=== PATIENT | female | born 1990 | race Caucasian/White ===

== ENCOUNTER 2021-08-11 13:23 | Outpatient (REF) | payer OTHER, SELFPAY | END 2021-08-11 13:24 | disposition home or self-care (01) | LOC: HO.LAB 13:23 | PROVIDERS: PCP Internal Medicine; Visit Provider Internal Medicine | DX: Z20.822 Contact with and (suspected) exposure to COVID-19 (principal) | CPT/HCPCS: C9803; U0003; U0005 ==

== ENCOUNTER 2021-08-29 10:45 | Outpatient (REF) | payer OTHER, SELFPAY | END 2021-08-29 10:46 | disposition home or self-care (01) | LOC: HO.LAB 10:45 | PROVIDERS: PCP Internal Medicine; Visit Provider Internal Medicine | DX: Z20.822 Contact with and (suspected) exposure to COVID-19 (principal) | CPT/HCPCS: C9803; U0003; U0005 ==

== ENCOUNTER 2025-01-04 13:26 | Emergency (ER) | payer OTHER, SELFPAY ==
--- NOTE | ~2025-01-04 | CT_ITS ---
CLINICAL HISTORY: Gastric sleeve 2 m ago, LLQ pain, R SBO, divertic CT abdomen and pelvis with contrast Comparison: None Findings: The lung bases are clear. There is cholelithiasis. Gallbladder appears otherwise normal. The liver, pancreas, spleen, adrenal glands, and kidneys are unremarkable. Patient is status post sleeve gastrectomy. The gastrointestinal tract is otherwise unremarkable. There is no bowel obstruction. There is trace free fluid in the cul-de-sac. There is no free air. The aorta and IVC are normal. There are no enlarged lymph nodes. There is an incidental dominant follicle in the right ovary measuring about 2.8 cm. Uterus and adnexa are otherwise unremarkable. There is no fracture or suspicious lytic or sclerotic lesion. IMPRESSION: 1. No acute abnormality in the abdomen or pelvis. 2. Cholelithiasis. 3. Postoperative changes of sleeve gastrectomy. This document has been electronically signed by: Garth Villanueva MD on 01/05/2025 03:12:41
[2025-01-04 13:29] VITALS: BP 110/76; PULSE 74; RESP 16; TEMP 36.5; O2SAT 100; BMI 25.3
--- NOTE | 2025-01-04 13:30 | ED_ITS ---
HPI - Abdominal Pain General Chief Complaint: Abdominal Pain Stated Complaint: left side abdominal pain Time Seen by Provider: 01/04/25 22:45 Source: patient Mode of arrival: ambulatory Limitations: no limitations History of Present Illness ED Provider: Dr. Da Ardon HPI narrative: 34-year-old female with no significant past medical history who had a gastric sleeve surgery 2 months prior in [place] who presents emergency department for evaluation of left lower quadrant pain x4 days. The pain has been intermittent. The pain is worse with movement and with lifting heavy objects. She states that her last bowel movement was yesterday. The pain is 9/10 at its worst. This is the patient's 1st episode of this type of pain. Since the gastric bypass surgery she was lost 20 lb. She denied fever, chills, rhinorrhea, sore throat, cough, chest pain, dyspnea on exertion, nausea vomiting or diarrhea. Patient was not had any frequency or dysuria. Patient has noted a strong odor to her urine. Related Data Allergies Allergy/AdvReac Type Severity Reaction Status Date / Time No Known Allergies Allergy Verified 01/04/25 13:36 Review of Systems Review of Systems Yes all other systems are reviewed and are negative [facility] Past Medical History [facility] Narrative: Social history: The patient denies tobacco, alcohol and drug use. Social History Social History Advance Directives: No Advance Directives Information Provided: No Do you have a plan to hurt others: No Plan Physical Exam ED Vital Signs: Vital Signs - 24 hr 01/04/25 13:29 01/04/25 23:25 Temperature 97.7 F 97.7 F Pulse Rate 74 72 Respiratory Rate 16 16 Blood Pressure 110/76 95/69 Pulse Oximetry 100 100 Oxygen Delivery Method Room Air Room Air BMI result Body Mass Index 25.3 Vital signs were normal Exam: General: Awake, alert in no distress Head: Normocephalic, atraumatic EENT: PERRL, Lids normal, sclera normal, conjunctiva normal, nose normal , ears normal, throat without erythema or exudates Neck: Supple, no adenopathy Lung: breath sounds symmetric, no wheezing, rales or rhonchi Chest: symmetric movement, nontender Heart: regular rate and rhythm, normal S1, S2 no murmurs or rubs Abdomen: soft, moderate left lower quadrant tenderness, no rebound, no voluntary or involuntary guarding Back: no vertebral tenderness, no CVAT Extremities: no deformities, moves all extremities symmetrically Neuro: Awake, alert, oriented, normal speech, cranial nerves intact, moves all extremities symmetrically Psych: Pleasant, cooperative Course Course Course Narrative: This is a Rapid Medical Exam performed in triage by Edyta Alberto PA-C. Full HPI, ROS and PE to be performed by primary ED provider. 34 yo F presenting to the ED c/o L sided abd pain x4 days w/radiation to back. Patient is s/p gastric sleeve in [place] 2 months ago. Pain worse w/movement & is intermittent. +odorous urine. denies N/V, SOB PE: No rash, +L CVAT, +LLQ abd ttp, no rebound or guarding. Plan: Labs, UA, CT Medical Decision Making Medical Decision Making MDM Narrative: 34-year-old female with no significant past medical history who had a gastric sleeve surgery 2 months prior in [place] who presents emergency department for evaluation of intermittent, left lower quadrant pain x4 days, course with movement and lifting heavy objects, review of systems was negative. Patient was had an intentional 20 lb weight loss since the gastric sleeve surgery. She did notice a strong odor to her urine but had no frequency, urgency or dysuria. Differential diagnosis: ?Includes but is not limited to diverticulitis, pancreatitis, hernia, partial small-bowel obstructions, anemia, electrolyte abnormalities Course: 02:12 My independent interpretation patient's laboratory evaluation is as follows: CBC was normal. CMP was normal except for an elevated bilirubin of 1.2. Quantitative beta-hCG was below detectable limits. Urinalysis was positive for leukocyte esterase. Microscopic revealed 21-50 WBCs, 1+ bacteria and 11-20 squamous cells-this is a non clean catch urine and the patient has no urinary tract symptoms, therefore doubt that she was urinary tract infection. Patient was treated with morphine 4 mg IV, Zofran 4 mg IV and normal saline x1 L with improvement of her pain. The patient's CT scan of the abdomen pelvis with both oral and IV contrast are pending. At the end of my shift, patient's care was turned over to my colleague, Dr. Ch. Patient's CT scan is negative essentially except for gallstone which were uncomplicated patient's pain is likely from small muscular hernia at the site of surgery laparoscopic surgery done when patient lifts heavy stuff at work no hernia palpable clinically small nodules palpable in the abdominal muscle likely had site of laparoscopic surgery Admission/Observation Consideration of admission/observation: Escalation of care including admission/observation considered (Yes) Lab Data MDM Lab Attestation statement: I reviewed the patient's lab results. 01/04/25 13:51 01/04/25 13:51 Labs: Lab Results 01/04/25 Range/Units 13:51 WBC 6.7 (4.8-10.8) X10*3/uL RBC 4.50 (4.20-5.50) X10*6/uL Hgb 12.0 (12.0-16.0) g/dl Hct 36.0 L (37.0-47.0) % MCV 80.0 (80.0-98.0) fL MCH 26.7 L (27.0-33.0) pg MCHC 33.3 (31.0-35.0) g/dl RDW 12.1 (11.0-16.0) % Plt Count 370 (160-400) X10*3/uL MPV 9.7 (9.4-12.3) fL Immature Gran % (Auto) 0.3 (0.0-0.4) % Neut % (Auto) 65.4 (45-73) % Lymph % (Auto) 26.1 (20-40) % [place] % (Auto) 5.3 (2-11) % Eos % (Auto) 1.8 (0-4) % Baso % (Auto) 1.1 (0-2) % Lymph # (Auto) 1.7 (1.2-4.9) X10*3/uL [place] # (Auto) 0.4 (0.1-1.2) X10*3/uL Eos # (Auto) 0.1 (0.0-0.4) X10*3/uL Baso # (Auto) 0.1 (0.0-0.2) X10*3/uL Abs Immat Gran (auto) 0.02 (0.00-0.03) X10*3/uL Absolute Neuts (auto) 4.4 (2.0-8.3) x10*3/uL Absolute Nucleated RBC 0.000 (0.0-0.012) X10*3/uL Nucleated RBC % (auto) 0.0 (0.0-0.2) /100WBC Sodium 140 (135-145) mmol/L Potassium 3.4 (3.3-5.1) mmol/L Chloride 109 H (96-108) mmol/L Carbon Dioxide 22 (22-29) mmol/L Anion Gap 12 (12-20) BUN 13 (9-16) mg/dL Creatinine 0.67 (0.5-1.4) mg/dL Estim Creat Clear Calc 102.9 Estimated GFR > 60 Random Glucose 98 (60-115) mg/dL Calcium 9.2 (8.4-10.2) mg/dL Magnesium 2.0 (1.6-2.6) mg/dL Total Bilirubin 1.2 H (0.0-1.0) mg/dL Direct Bilirubin 0.3 (0.0-0.5) mg/dL AST 18 (5-31) U/L ALT 8 (0-31) U/L Alkaline Phosphatase 56 (39-117) U/L Total Protein 7.5 (6.5-8.0) g/dL Albumin 4.4 (3.5-5.0) g/dL Lipase 23 (8-78) U/L Beta HCG, Quant < 2 mIU/mL Urine Color Dark Yellow Urine Appearance Cloudy Urine pH 5.5 (5.0-9.0) Ur Specific [place] >= 1.030 H (1.005-1.025) Urine Protein Trace (Neg-Trace) mg/dL Urine Glucose (UA) Negative (Negative) mg/dL Urine Ketones Trace (Negative) mg/dL Urine Blood Negative (Negative) Urine Nitrite Negative (Negative) Ur Leukocyte Esterase Small (1+) H (Negative) Urine RBC 0-2 (0-2) /HPF Urine WBC 21-50 H (0-5) /HPF Ur Squamous Epith Cells 11-20 (0-2) /HPF Urine Bacteria 1+ (None Seen) Hyaline Casts 0-2 (0-2) /LPF Independent Historian Clinical information obtained from an independent historian. History obtained from or confirmed by: Spouse Medications Administered Discontinued Medications Generic Name Dose Route Start Last Admin Trade Name Freq PRN Reason Stop Dose Admin Diatrizoate Meglum/Diatrizoate Sod 30 ml 01/05/25 00:00 01/05/25 00:01 Diatrizoate Meglumine, Sodium 30 Ml Solution PO 01/05/25 00:01 30 ml ONCE ONE Administration Sodium Chloride 1,000 mls @ 250 mls/hr 01/04/25 23:27 01/04/25 23:52 Ns IV 01/05/25 03:26 250 mls/hr .Q4H STA Administration Morphine Sulfate 4 mg 01/04/25 23:27 01/04/25 23:48 Morphine Sulfate 4 Mg/Ml Cartridge IVPUSH 01/04/25 23:28 4 mg ONCE STA Administration Protocol Ondansetron HCl 4 mg 01/04/25 23:27 01/04/25 23:48 Ondansetron Hcl 4 Mg/2 Ml Vial IVPUSH 01/04/25 23:28 4 mg ONCE ONE Administration Discharge Plan Discharge Clinical Impression: Abdominal pain Qualifiers: Abdominal location: left lower quadrant Qualified Code(s): R10.32 - Left lower quadrant pain Patient Disposition: Home, Self-Care Instructions: Abdominal Pain (ED) Additional Instructions: Avoid lifting heavy stuff till healed completely Tylenol for pain as needed Follow up with your surgeon You do have gallstones which are uncomplicated at this time Stand Alone Forms: Work/School Release Print Language: Czech
[2025-01-04 14:05] LABS: MANUAL DIFF FLAG NO
[2025-01-04 14:07] LABS: Basophils Absolute Auto 0.1 X10*3/uL (0.0-0.2); Basophils Percent Auto 1.1 % (0-2); Eosinophils Absolute Auto 0.1 X10*3/uL (0.0-0.4); Eosinophils Percent Auto 1.8 % (0-4); Imm Gran Abs Auto 0.02 X10*3/uL (0.00-0.03); Imm Gran Pct Auto 0.3 % (0.0-0.4); Lymphocytes Absolute Auto 1.7 X10*3/uL (1.2-4.9); Lymphocytes Percent Auto 26.1 % (20-40); Mean Corpuscular HGB Conc 33.3 g/dl (31.0-35.0); Mean Corpuscular Hemoglobin 26.7 pg (27.0-33.0); Mean Platelet Volume 9.7 fL (9.4-12.3); Monocytes Absolute Auto 0.4 X10*3/uL (0.1-1.2); Monocytes Percent Auto 5.3 % (2-11); Neutrophils Absolute Auto 4.4 x10*3/uL (2.0-8.3); Neutrophils Percent Auto 65.4 % (45-73); Platelet Count 370 X10*3/uL (160-400); Red Cell Distribution Width 12.1 % (11.0-16.0); White Blood Count 6.7 X10*3/uL (4.8-10.8)
[2025-01-04 14:11] LABS: Appearance Urine Cloudy; Color Urine Dark Yellow; Glucose Urine UA Negative (Negative); Leukocyte Esterase Urine Small (1+) (Negative); Nitrite Urine Negative (Negative); PH 5.5 (5.0-9.0); Specific Gravity - Urine >= 1.030 (1.005-1.025); UMIC TRIGGER UACC YES; Urine Blood Negative (Negative); Urine Ketones Trace mg/dL (Negative); Urine Protein Trace mg/dL (Neg-Trace)
[2025-01-04 14:21] LABS: Bacteria Urine 1+ (None Seen); Hyaline Casts Urine 0-2 /LPF (0-2); RBC Urine 0-2 /HPF (0-2); UACC Culture Trigger YES; WBC Urine 21-50 /HPF (0-5)
[2025-01-04 14:32] LABS: Alanine Aminotransferase 8 U/L (0-31); Albumin Level 4.4 g/dL (3.5-5.0); Anion Gap 12 (12-20); Aspartate Amino Transferase 18 U/L (5-31); Bilirubin Direct 0.3 mg/dL (0.0-0.5); Bilirubin Total 1.2 mg/dL (0.0-1.0); Blood Urea Nitrogen 13 mg/dL (9-16); Calcium 9.2 mg/dL (8.4-10.2); Carbon Dioxide 22 mmol/L (22-29); Chloride 109 mmol/L (96-108); Creatinine Clr Calc Pharmacy 102.9; Estimated Glomerular Filt Rate > 60; Glucose Random 98 mg/dL (60-115); Lipase 23 U/L (8-78); Potassium 3.4 mmol/L (3.3-5.1); Sodium 140 mmol/L (135-145); Total Protein 7.5 g/dL (6.5-8.0)
[2025-01-04 14:37] LABS: HCG Quantitative < 2 mIU/mL
[2025-01-04 15:29] LABS: Alkaline Phosphatase 56 U/L (39-117)
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
--- OUTSIDE RECORDS SUMMARY | 2025-01-04 22:53 | XMS_ITS | Encounter Summary ---
[facility] [place] [address] Care Team Providers Care Inspector Assembly Name Role Phone Joanie Boo MD Primary Care Prov ider Reason for Visit * Reason Onset Date Comments Appointment 12/12/2024 Encounter Details Date Type Department Care Team (Late st Contact Info) Description 12/12/2024 Telephone Obstetrics and Gynecology [address] [phone] Divya Brown MD [address] [place], [place] Appointment Social History Tobacco Use Types Packs/Day Years [...] as of this encounter Progress Notes * Malu Hunt RN - 12/12/2024 1:28 PM EST Pt call routed to wrong pool at initial call @ 10am . RN did not receive call until 1305. * Malu Hunt RN - 12/12/2024 1:10 PM EST [facility] spanish interpreter/translator services #[id number].pt states she has heavy periods every month and has been bleeding for 4 days where she is wearing a super tampon and maxi pad soaking through them every hour. No Clotsor c/o SOB, dizziness or chest pain. Pt advised to go to ED for excessive heavy bleeding. Pt deniesheavy bleeding to go to ED. Reviewed heavy bleeding precautions. If vaginal bleeding soaks an overnight maxi pad every hour formore than 5 hrs with blood clots, lightheadedness, chest pain, or palpitations pt should go to ED for further evaluation. Pt's job requires heavy lifting and she could not go to work due to heavy bleeding. Pt asking for a work note. Pt advised the provider will not give her a work note unless necess mitzi. Pt scheduled appt today at 4pm with CNM. * Alee Diaz - 12/12/2024 12:56 PM EST Patient calling in again please call * Yadi Anderson - 12/12/2024 10:01 AM EST Pt calling, was suppose to have gotten an call for an consultation of discuss menorrhagia surgicalmanagement options . Pls advise documented in this encounter Plan of Treatment Upcoming Encounters Date Type Department Care Team (Late st Contact Info) Description 05/19/2025 12:00 PM EDT Office Visit Adult Medicine [facility] [address] [place] [address] Monica Burton PA [address] [place] [address] 06/09/2025 10:30 AM EDT Office Visit [facility] Hematology Oncology [address] [place] [phone] Gina May PA [address] [place] [address] documented as of this encounter Visit Diagnoses Not on filedocumented in this encounter Care Teams Inspector Assembly Relationship Specialty Start Date End Date Joanie Boo MD [address] [place] [id number] PCP - General Internal Medicine 06/14/22 documented as of this encounter
--- OUTSIDE RECORDS SUMMARY | 2025-01-04 22:53 | XMS_ITS | Clinical Summary ---
Author Organization [facility] Address [address] [place] [address] Care Team Providers Care Primer Powder Blender Wet Name Role Phone Cristina Díaz MD Primary Care Provider [phone] Allergies Active Allergy Reactions Criticality Noted Date Comments Dextromethorphan Shortness Of Breath High 03/03/2021 tachycardia Dextromethorphan-Guaifenes in 03/20/2018 Tachycardia,sob Guaifenesin Shortness Of Breath High 03/03/2021 Tachycardia Medications Medication Sig Dispensed Refills Start Date End Date Status PARoxetine (PAXIL) 30 MG tablet Take 20 mg by mouth every morning. 0 Active LORazepam (ATIVAN) 1 MG tablet Take 1 tablet (1 mg total) by mouth daily. 0 Active zolpidem (AMBIEN) 10 MG tablet Take 1 tablet (10 mg total) by mouth every night at bedtime as needed for sleep. 0 Active ALPRAZolam (XANAX) 1 MG tablet Take 1 tablet (1 mg total) by mouth every night at bedtime as needed for sleep. 0 Active Active Problems Problem Noted Date Diagnosed Date Iron deficiency anemia due to chronic blood loss 03/05/2023 Menorrhagia with regular cycle 05/07/2021 Generalized anxiety disorder 02/11/2019 Iron deficiency anemia 03/20/2018 Migraine 07/11/2011 Overview: Physical therapy Depression Family History Medical History Relation Name Comments Diabetes Maternal Grandmother Relation Name Status Comments Maternal Grandmother Social History Tobacco Use Types Packs/Day Years Used Date Smoking Tobacco: Never Smokeless Tobacco: Never Alcohol Use Standard Drinks/Week Comments Never 0 (1 standard drink = 0.6 oz pur e alcohol) Sex and Gender Information Value Date Recorded Sex Assigned at Female 03/21/2023 1:56 PM EDT Gender Identity Not on file Sexual Orientation Not on file Job Start Date Occupation Industry Not on file Not on file Not on file Last Filed Vital Signs Vital Sign Reading Time Taken Comments Blood Pressure 97/63 06/24/2024 11:06 AM EDT Pulse 75 06/24/2024 11:06 AM EDT Temperature 36.5 ??C (97.7 ??F) 06/24/2024 11:06 AM E DT Respiratory Rate 16 06/24/2024 11:06 AM EDT Oxygen Saturation 100% 06/24/2024 11:06 AM EDT Inhaled Oxygen Concentration - - Weight 74.5 kg (164 lb 3.9 oz) 06/17/2024 1:19 P M EDT Height 157.5 cm (5' 2 ) 03/02/2023 8:51 AM EDT Body Mass Index 30.04 03/02/2023 8:51 AM EDT Plan of Treatment Health Maintenance Due Date Last Done Comments Hepatitis B Vaccines (1 of 3 - 3-dose series) 1990 Hepatitis C Screening 1990 Depression Screening 2002 BMI Counseling 2008 Preventative Health Evaluation 2008 Cervical Cancer Screening (Pap Smear) 2011 COVID-19 Vaccine (2 5 season) 2024 02/25/2021 Influenza Vaccine (#1) 2024 9, 09/01/2015 DTap / Tdap / Td (4 - Td or Tdap) 11/28/2029 11/28/2019, 04/23/2017, 11/03/2013 Pneumococcal Vaccine Aged Out No long er eligible based on patient's age to complete this topic RSV Ped < 20 months Aged Out No longe r eligible based on patient's age to complete this topic Care Teams Primer Powder Blender Wet Relationship Specialty Start Date End Date Cristina Díaz MD PCP - General Internal Medicine 03/04/21
--- OUTSIDE RECORDS SUMMARY | 2025-01-04 22:53 | XMS_ITS | Clinical Summary ---
Author Organization [facility] [place] Address [address] [place] [address] Care Team Providers Care Bath Design Sales Consultant Name Role Phone Joanie Boo MD Primary Care Prov ider Allergies Active Allergy Reactions Criticality Noted Date Comments Dextromethorphan Shortness of breath High 03/03/2021 tachycardia Dextromethorphan-Guaifenes in 03/20/2018 Tachycardia,sob Guaifenesin Shortness of breath High 03/03/2021 Tachycardia Medications ALPRAZolam (XANAX) 1 mg tablet Take 1 tablet (1 mg total) by mouth every night at bedtime as needed for sleep. 06/20/2023 Active LORazepam (ATIVAN) 1 mg tablet Take 1 tablet (1 mg total) by mouth daily. Active PARoxetine (PAXIL) 30 mg tablet Take 20 mg by mouth every morning. Active zolpidem (AMBIEN) 10 mg tablet Take 1 tablet (10 mg total) by mouth every night at bedtime as needed for sleep. - Oral 04/28/2019 Active norethindrone (AYGESTIN) 5 mg tablet Take 1 tablet (5 mg total) by mouth 1 (one) time each day. 30 tablet 3 12/12/2024 Active Active Problems Problem Noted Date Diagnosed Date Iron deficiency anemia due to chronic blood loss 03/05/2023 Menorrhagia with regular cycle 05/07/2021 Overview (08/12/2024): Last Assessment & Plan: We again discussed all options for management of her bleeding. She is definitely not interested in hormones. She was most interested in ablation. I explained that this would be mean she should not attempt to conceive again in the future given the danger of abnormal placentation in women with previous ablation. She was offered hysterectomy as well. She desired to consider her options, but was interested in trying TXA with menses. Rx given and she will follow up. Generalized anxiety disorder 02/11/2019 Iron deficiency anemia 03/20/2018 Depression 08/30/2015 Migraine 07/11/2011 Overview (08/12/2024): Physical therapy Encounters Date Type Department Care Team Description 12/12/2024 4:00 PM EST Office Visit Obstetrics and Gynecology - [address] [phone] Karena Cardoza CNM Menorrhagia with regular cycle (Primary Dx); Iron deficiency anemia due to chronic blood loss 12/12/2024 Telephone Adult Medicine [facility] - [address] [phone] Joanie Boo MD triage 12/12/2024 Telephone Obstetrics and Gynecology - [address] [phone] Divya Brown MD Appointment 10/09/2024 2:30 PM EST Office Visit Obstetrics and Gynecology - [address] [phone] Latisha Parrish CNM Vaginal discharge (Primary Dx); Screen for STD (sexually transmitted disease) 10/08/2024 Telephone Obstetrics and Gynecology - [address] [phone] Milka Castellon CNM Vaginal Discharge from Last 3 Months Surgical History Surgery Date Site/Laterality Comments BREAST SURGERY 2011 PROCEDURE:REDUCTION MAMMAPLASTY TUBAL LIGATION PROCEDURE:TUBAL LIGATION WISDOM TOOTH EXTRACTION PROCEDURE:WISDOM TOOTH EXTRACTION SECTION PROCEDURE: SECTION SECTION PROCEDURE: HISTORICAL DELIVERY; COMMENT: x3 BREAST REDUCTION 2011 PROCEDURE: [place] BREAST REDUCTION WISDOM TOOTH EXTRACTION Left PROCEDURE: HISTORICAL WISDOM TEETH EXTRACTION; COMMENT: upper/lower OTHER SURGICAL HISTORY PROCEDURE: [place] LIG/TRNSXJ FLP TUBE ABDL/VAG APPR UNI/BI Medical History Medical History Date Comments Iron deficiency anemia DX:Iron d eficiency anemia Migraine DX:Migraine Neck pain DX:Neck pain Major depressive disorder wi th current active episode DX:Major depressive disorder with current active episode Generalized anxiety disorder DX: Generalized anxiety disorder Panic disorder DX:Panic disorde r Vitamin D deficiency DX:Vitamin D deficiency Depression DX:Depression MRSA (methicillin resistant staph aureus) culture positive DX:MRSA (methicillin resista nt staph aureus) culture positive Vitamin D deficiency 06/19/2018 DX:Vitamin D deficiency Major depressive disorder wi th current active episode 02/11/2019 DX:Major depressive disorder with current active episode Generalized anxiety disorder 02/11/2019 DX: Generalized anxiety disorder Panic disorder 02/11/2019 DX:Panic disorde r MRSA (methicillin resistant staph aureus) culture positive 11/10/2013 DX:MRSA (methicillin resista nt staph aureus) culture positive; COMMENT: 11/07/2013 - Vulva Abcess culture results +MRSA # 1 negative 05/25/17 #2 negative 06/06/17 #3 negative 06/20/2017 ---infection cleared no further testing or precautions indicated Family History Medical History Relation Name Comments Diabetes Father Diabetes Maternal Grandmother Other: pulmonary embolism Mother No Known Problems Sister Breast cancer Neg Hx Cancer of Small Bowel Neg Hx Colon cancer Neg Hx Kidney cancer Neg Hx Ovarian cancer Neg Hx Pancreatic cancer Neg Hx Uterine cancer Neg Hx Relation Name Status Comments Father Maternal Grandmother Mother Sister Alive Social History Tobacco Use Types Packs/Day Years Used Date Smoking Tobacco: Never Smokeless Tobacco: Never Tobacco Cessation:Counseling Given: Not Answered Alcohol Use Standard Drinks/Week Comments No 0 (1 standard drink = 0.6 oz pur e alcohol) Comments No Sex and Gender Information Value Date Recorded Sex Assigned at Not on file Legal Sex Female 1:29 PM EST Gender Identity Female 05/05/2022 10:59 AM EDT Sexual Orientation Not on file Obstetrics History Para Term AB IAB SAB Ectopic Multiple Livin g Live Births 6 5 5 0 1 1 0 0 0 5 5 Date Outcome GA Total Labor Labor/2nd/3rd Weight Sex Type Anes PTL Stephenie A1 A5 Name Clin 2002 IAB 007 Term 40w 0d M CS-Un spec Living Delivery Location:[facility] [place] 008 Term 40w 0d M CS-Un spec Living Delivery Location:[facility] Comments:[place] 013 Term 37w 0d F CS-Un spec Living Delivery Location:[facility] 017 Term 39w 4d CS-Un spec Living 020 Term CS-Un spec Living Last Filed Vital Signs Vital Sign Reading Time Taken Comments Blood Pressure 102/72 12/12/2024 3:57 PM EST Pulse 102 12/12/2024 3:57 PM EST Temperature - - Respiratory Rate 18 10/09/2024 2:14 PM EST Oxygen Saturation - - Inhaled Oxygen Concentration - - Weight 64.8 kg (142 lb 12.8 oz) 12/12/2024 3:57 PM EST Height 157.5 cm (5' 2 ) 12/12/2024 3:57 PM EST Body Mass Index 26.12 12/12/2024 3:57 PM EST Plan of Treatment Upcoming Encounters Date Type Department Care Team (Late st Contact Info) Description 05/19/2025 12:00 PM EDT Office Visit Adult Medicine [facility] [address] [place] [address] Monica Burton PA [address] [place] [address] 06/09/2025 10:30 AM EDT Office Visit [facility] Hematology Oncology [address] [place] [address] Gina May PA [address] [place] [address] Health Maintenance Due Date Last Done Comments Hepatitis B Vaccines (1 of 3 - 19+ 3-dose series) 2009 Depression Screening 11/05/2020 Hepatitis C Screening 11/05/2020 Social Influencers of Health Screening 11/05/2020 HPV Vaccines (3 - 3-dose SCD M series) 05/03/2021 01/06/2021, 11/02/2020 Cervical Cancer Screening: P ap Smear 11/02/2023 11/02/2020 COVID-19 Vaccine (2 - 2023-2 5 season) 2024 02/25/2021 Influenza Vaccine (#1) 2024 7, 09/01/2015, 08/06/2013 DTaP,Tdap,and Td Vaccines (3 - Td or Tdap) 04/23/2027 04/23/2017, 11/03/2013 HIV Screening Completed 09/09/2024 HIB Vaccines Aged Out No longer eligi ble based on patient's age to complete this topic Hepatitis A Vaccines Aged Out No long er eligible based on patient's age to complete this topic IPV Vaccines Aged Out No longer eligi ble based on patient's age to complete this topic MMR Vaccines Aged Out No longer eligi ble based on patient's age to complete this topic Meningococcal ACWY Vaccine Aged Out N o longer eligible based on patient's age to complete this topic Pneumococcal Vaccine: Pediatrics (0 to 5 Years) and At-Risk Patients (6 to 64 Years) Aged Out No longer eligible b ased on patient's age to complete this topic RSV Immunization Patients Under 20 months Aged Out No longer eligible b ased on patient's age to complete this topic Varicella Vaccines Aged Out No longer eligible based on patient's age to complete this topic Procedures Procedure Name Priority Date/Time Associated Diagnosis Comments CBC WITH AUTO DIFFERENTIAL Routine 12/12/2024 4:41 PM EST Iron deficiency anemia, unspecified CBC AND DIFFERENTIAL Routine 12/12/2024 4:41 PM EST Iron deficiency anemia, unspecified FERRITIN Routine 12/12/2024 4:41 PM EST Iron deficiency anemia, unspecified IRON AND TIBC Routine 12/12/2024 4:41 PM EST Iron deficiency anemia, unspecified TRICHOMONAS VAGINALIS ANTIGEN Routine 10/09/2024 2:43 PM EST Vaginal discharge WET PREP, GENITAL Routine 10/09/2024 2:4 3 PM EST Vaginal discharge CHLAMYDIA TRACHOMATIS AND NEISSERIA GONORRHOEAE PCR Routine 10/09/2024 2:43 PM EST Vaginal discharge Screen for STD (sexually transmitted disease) PAP SMEAR Routine 11/02/2020 from Last 3 Months or Most Recently Relevant to Health Maintenance Results * (ABNORMAL) CBC auto differential (12/12/2024 4:41 PM EST) WBC 9.7 4.8 - 10.8 K/mcL LAB HEMETOLOGY METHOD 12/12/2024 6:51 PM [facility] RBC 4.60 3.80 - 4.80 M/mcL LAB HEMETOLOGY METHOD 12/12/2024 6:51 PM [facility] Hemoglobin 12.6 11.5 - 16.0 g/dL LAB HEMETOLOGY METHOD 12/12/2024 6:51 PM [facility] Hematocrit 38.2 35.0 - 47.0 % LAB HEMETOLOGY METHOD 12/12/2024 6:51 PM [facility] MCV 82.9 79.0 - 98.0 FL LAB HEMETOLOGY METHOD 12/12/2024 6:51 PM [facility] MCH 27.3 27.0 - 32.0 pcg LAB HEMETOLOGY METHOD 12/12/2024 6:51 PM [facility] MCHC 33.0 32.0 - 37.0 g/dL LAB HEMETOLOGY METHOD 12/12/2024 6:51 PM [facility] RDW 11.9 11.0 - 15.0 % LAB HEMETOLOGY METHOD 12/12/2024 6:51 PM [facility] Platelets 459(H) 130 - 400 K/mcL LAB HEMETOLOGY METHOD 12/12/2024 6:51 PM [facility] MPV 10.1 7.0 - 11.0 FL LAB HEMETOLOGY METHOD 12/12/2024 6:51 PM [facility] NRBC 0.0 <1.0 % LAB HEMETOLOGY METHOD 12/12/2024 6:51 PM [facility] NRBC Absolute 0.00 <0.10 K/mcL LAB HEMETOLOGY METHOD 12/12/2024 6:51 PM [facility] Neutrophils Relative 66.1 % LAB HEMETOLOGY METHOD 12/12/2024 6:51 PM [facility] Lymphocytes Relative 23.2 % LAB HEMETOLOGY METHOD 12/12/2024 6:51 PM [facility] Monocytes Relative 7.2 % LAB HEMETOLOGY METHOD 12/12/2024 6:51 PM [facility] Eosinophils Relative 2.5 % LAB HEMETOLOGY METHOD 12/12/2024 6:51 PM [facility] Basophils Relative 0.8 % LAB HEMETOLOGY METHOD 12/12/2024 6:51 PM [facility] Immature Granulocytes Relative 0.2 % LAB HEMETOLOGY METHOD 12/12/2024 6:51 PM [facility] Neutrophils Absolute 6.42 1.50 - 7.00 K/mcL LAB HEMETOLOGY METHOD 12/12/2024 6:51 PM [facility] Lymphocytes Absolute 2.25 1.00 - 5.00 K/mcL LAB HEMETOLOGY METHOD 12/12/2024 6:51 PM [facility] Monocytes Absolute 0.70 0.20 - 1.00 K/mcL LAB HEMETOLOGY METHOD 12/12/2024 6:51 PM [facility] Eosinophils Absolute 0.24 0.00 - 0.50 K/mcL LAB HEMETOLOGY METHOD 12/12/2024 6:51 PM [facility] Basophils Absolute 0.08 0.00 - 0.20 K/mcL LAB HEMETOLOGY METHOD 12/12/2024 6:[address] [facility] Immature Granulocytes Absolute 0.02 0.00 - 0.03 K/[facility] LAB HEMETOLOGY METHOD 12/12/2024 6:[address] [facility] Blood Venous blood specimen / Unknown Venipuncture / Unknown 12/12/2024 4:41 PM EST 12/12/2024 4:41 PM EST us Gina RENEE LAB BLOOD ORDERABLES Final Resul t [facility] [address] [place] [address], [place] [phone] * (ABNORMAL) Iron and TIBC (12/12/2024 4:41 PM EST) Iron 58 40 - 150 mcg/dL LAB CHEMISTRY METHOD 12/12/2024 7:17 PM [facility] TIBC 402 250 - 450 mcg/dL LAB CHEMISTRY METHOD 12/12/2024 7:17 PM [facility] Iron Saturation 14(L) 15 - 50 % LAB CHEMISTRY METHOD 12/12/2024 7:17 PM [facility] Blood Venous blood specimen / Unknown Venipuncture / Unknown 12/12/2024 4:41 PM EST 12/12/2024 4:41 PM EST us Gina RENEE LAB BLOOD ORDERABLES Final Resul t [facility] [address] [place] [address], [place] [phone] * Ferritin (12/12/2024 4:41 PM EST) Ferritin 16 8 - 252 ng/mL LAB CHEMISTRY METHOD 12/12/2024 7:[address] [facility] Blood Venous blood specimen / Unknown Venipuncture / Unknown 12/12/2024 4:41 PM EST 12/12/2024 4:41 PM EST Gina RENEE LAB BLOOD ORDERABLES Final Resul t [facility] [address] [place] [address], [place] [phone] * Trichomonas vaginalis antigen (10/09/2024 2:43 PM EST) Pathologist [facility] Trichomonas vaginalis Negative Negative 10/09/2024 9:[address] [facility] Swab Vaginal structure / Unknown Non-blood Collection / Unknown 10/09/2024 2:43 PM EST 10/09/2024 2:43 PM EST Latisha Parrish CNM LAB MICROBIOLOGY - GENE RAL ORDERABLES Final Result Performing Organization Address [facility]/ZIP Co de Phone Number [facility] [address] [place] [address], [place] [phone] * Chlamydia trachomatis and Neisseria gonorrhoeae molecular study (10/09/2024 2:43 PM EST) [facility] Neisseria gonorrhoeae PCR Negative Negative LAB MOLECULAR DIAGNOSTICS METHOD 10/10/2024 8:[address] [facility] Chlamydia trachomatis PCR Negative Negative LAB MOLECULAR DIAGNOSTICS METHOD 10/10/2024 8:[address] [facility] Swab Endocervical structure / Unknown Non-blood Collection / Unknown 10/09/2024 2:43 PM EST 10/09/2024 2:43 PM EST Latisha Parrish CNM LAB MICROBIOLOGY - GENE RAL ORDERABLES Final Result Performing Organization Address City/[facility]/ZIP Co de Phone Number [facility] [address] [place] [address], [place] [phone] * (ABNORMAL) Wet prep, genital (10/09/2024 2:43 PM EST) Clue Cells, Wet Prep Negative Negative 10/09/2024 9:[address] [facility] Yeast, Wet Prep Positive(A) Negative 10/09/2024 9:[address] [facility] Trichomonas, Wet Prep Indeterminate Negative 10/09/2024 9:[address] [facility] Comment:Refer to Trichomonas antigen. Swab Vaginal structure / Unknown Non-blood Collection / Unknown 10/09/2024 2:43 PM EST 10/09/2024 2:43 PM EST Latisha Parrish [facility] MICROBIOLOGY - GENE RAL ORDERABLES Final Result [facility] [address] [place] [address], * Pap smear (11/02/2020) 11/02/2020 Narrative HISTORICAL TESTING LAB RESULTING AGENCY - 11/05/2020 12:21 PM EST [id number] THINPREP PAP, IMAGED: NEGATIVE FOR SQUAMOUS INTRAEPITHELIAL LESION AND MALIGNANCY . PRINCESS IS PRESENT. SILVIA VARGAS(ASCP) (CASE ELECTRONICALLY SIGNED 11 05 2020) RESULT OF APTIMA HIGH RISK HPV ASSAY: HIGH RISK HPV: ??NEGATIVE (SEROTYPES 16,18,31,33,35,39,45,51,52,56,58,59,66,68) COMPLETED ON 2020-11-05 ADEQUACY: SATISFACTORY ENDOCERVICAL/TRANSFORMATION ZONE COMPONENT PRESENT. SOURCE: THINPREP PAP HPV ANY DX: ??REFLEX 16 AND 18, CERVICAL, IMAGED CLINICAL INFORMATION: HPV ANY DIAGNOSIS. Z12.4, PAP HX NEG, LMP 10/07/20. Hali Perkins [facility] CYTOLOGY ORDERABLES Fin al Result HISTORICAL TESTING LAB RESULTING AGENCY from Last 3 Months or Most Recently Relevant to Health Maintenance [place] [address] [place] [address] [employer] Care Teams Bath Design Sales Consultant Relationship Specialty Start Date End Date Joanie Boo MD [address] [place] [id number] PCP - General Internal Medicine 06/14/22
[2025-01-04 23:25] VITALS: BP 95/69; PULSE 72; RESP 16; TEMP 36.5; O2SAT 100
[2025-01-04] MEDS: Morphine Sulfate 4 MG/ML CARTRIDGE IVPUSH (23:48)
[2025-01-04] MEDS: ondansetron HCL 4 MG/2 ML VIAL IVPUSH (23:48)
[2025-01-04] MEDS: 0.9 % Sodium Chloride 1,000 ML 250 ML IV (23:52)
[2025-01-05] MEDS: Diatrizoate Meglumine, Sodium 30 ML SOLUTION PO (00:01)
[2025-01-05 03:52] VITALS: BP 100/52; PULSE 68; RESP 16; TEMP 36.6; O2SAT 100
== END 2025-01-05 03:53 | disposition home or self-care (01) ==
PROVIDERS: Physician Assistant; Emergency Provider Emergency Medicine Emergency Medical Services; PCP Internal Medicine
DX: R10.32 Left lower quadrant pain (principal); R11.2 Nausea with vomiting, unspecified; M54.50 Low back pain, unspecified; Z79.899 Other long term (current) drug therapy; Z98.84 Bariatric surgery status
CPT/HCPCS: 36415; 74177; 80048; 80076; 81001; 83690; 83735; 84702; 85025; 87086; 87088; 87186; 96361; 96374; 96375; 99285; J2270; J2405

== ENCOUNTER → 2025-01-05 02:00 | Outpatient (BNV) | payer OTHER, SELFPAY | PROVIDERS: Emergency Provider Emergency Medicine Emergency Medical Services; PCP Internal Medicine; Visit Provider Radiology Diagnostic Radiology | DX: K80.20 Calculus of gallbladder without cholecystitis without obstruction (principal); Z98.84 Bariatric surgery status | CPT/HCPCS: 74177 ==